=== PATIENT | male | born 1980 | race Two or more races ===

== ENCOUNTER 2025-01-28 11:29 | Emergency (ER) | payer OTHER ==
[~2025-01-28] VITALS: Ht 170.2 cm; Wt 109.2 kg
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
[2025-01-28] MEDS: HYDROcodone-ACET 10/325MG TAB PO ONE (12:16)
[2025-01-28] MEDS: TETANUS-DIPTH-ACEL PERTUSSIS 0.5ML SYR Tdap IM ONE (12:17)
[2025-01-28] MEDS: cefTRIAXone SOD 1,000 MG VL IM ONE (12:18)
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
[2025-01-28] MEDS ORDERED: CEPH500C PO (13:07)
[2025-01-28] MEDS ORDERED: IBUP-1456 PO (13:07)
[2025-01-28 13:16] VITALS: BP 131/85; PULSE 89; RESP 20; TEMP 97.9; O2SAT 95
== END 2025-01-28 13:21 | disposition home or self-care (01) ==
LOC: ER 11:29
DX: S39.011A Strain of muscle, fascia and tendon of abdomen, initial encounter (principal); S50.811A Abrasion of right forearm, initial encounter; S60.511A Abrasion of right hand, initial encounter; S60.512A Abrasion of left hand, initial encounter; S50.312A Abrasion of left elbow, initial encounter; S80.212A Abrasion, left knee, initial encounter; S80.211A Abrasion, right knee, initial encounter; V89.2XXA Person injured in unspecified motor-vehicle accident, traffic, initial encounter; Y93.55 Activity, bike riding; Y92.488 Other paved roadways as the place of occurrence of the external cause; Y99.8 Other external cause status
CPT/HCPCS: 71250; 74176; 90471; 90715; 96372; 99285; J0696